=== PATIENT | female | born 1965 | race Caucasian/White ===

== ENCOUNTER 2017-07-20 21:25 | Emergency (ER) | payer OTHER ==
[2017-07-21] MEDS: ONDANSETRON (ODT) 4 MG TAB ODT (00:42)
[2017-07-21] MEDS: ACETAMINOPHEN 325 MG TAB PO (00:42)
[2017-07-21] MEDS: IBUPROFEN 600 MG TAB PO (00:42)
== END 2017-07-21 02:24 | disposition home or self-care (01) ==
LOC: FTE 21:25
DX: J10.1 Influenza due to other identified influenza virus with other respiratory manifestations (principal)
CPT/HCPCS: 71045; 87400; 99283-25

== ENCOUNTER 2017-10-09 07:08 | Emergency (ER) | payer OTHER ==
[2017-10-09] MEDS: HYDROCODONE/APAP (5/325) TAB PO (08:11)
== END 2017-10-09 09:09 | disposition home or self-care (01) ==
LOC: FTE 07:08
DX: M25.562 Pain in left knee (principal)
CPT/HCPCS: 73562; 99283-25